=== PATIENT | male | born 2000 | race Two or more races ===

== ENCOUNTER 2021-08-12 15:57 | Emergency (ER) | payer SELFPAY ==
[~2021-08-12] VITALS: Ht 160 cm; Wt 54.0 kg
[2021-08-12 19:32] LABS: Basophils # (auto) 0.2 10 ^3/uL (0-0.2); Basophils % (auto) 1.9 % (0.0-2.0); Eosinophils # (auto) 0 10 ^3/uL (0-0.8); Eosinophils % (auto) 0.2 % (0.0-7.0); Hematocrit 39.2 % (41.0-53.0); Hemoglobin 13.7 g/dL (13.5-17.5); Lymphocytes # (auto) 1.3 10 ^3/uL (0.4-5.4); Lymphocytes % (auto) 13.6 % (10.0-50.0); Mean Corpuscular Hemoglobin 29.5 pg (28.0-32.0); Mean Corpuscular Hgb Conc. 34.9 g/dL (32.0-36.0); Mean Corpuscular Volume 84.6 fL (80.0-100.0); Monocytes # (auto) 1.2 10 ^3/uL (0-1.3); Monocytes % (auto) 12.9 % (0.0-12.0); Neutrophils # (auto) 6.7 10 ^3/uL (1.6-8.6); Neutrophils % (auto) 71.4 % (37.0-80.0); Nucleated Red Blood Cells % 0.3 %; Red Blood Cells 4.63 10^6/uL (4.5-5.90); Red Cell Distribution Width 12.4 % (11.8-14.3); White Blood Cell 9.4 10^3/uL (4.4-10.8)
[2021-08-12 19:50] LABS: Potassium 3.7 mmol/L (3.5-5.1)
[2021-08-12 19:56] LABS: Albumin 3.1 g/dL (3.4-5.0); BUN/Creatinine Ratio 10.4; Bilirubin, Total 0.6 mg/dL (0.2-1.0); Calcium 9.3 mg/dL (8.5-10.1)
[2021-08-12 20:23] LABS: Urine Bacteria NONE SEEN /hpf (None Seen); Urine Blood Negative /uL (Negative); Urine Mucus FEW (None Seen); Urine Specific Gravity 1.021 (1.001-1.035); Urine WBC 1 /hpf (0 - 3)
[2021-08-12] MEDS ORDERED: cefTRIAXone W LIDOCAINE 1 GM IM IM ONE (22:00)
[2021-08-12] MEDS ORDERED: cefTRIAXone SOD 1,000 MG VL ONE (22:21)
[2021-08-12 23:07] VITALS: BP 101/60
== END 2021-08-12 23:20 | disposition home or self-care (01) ==
LOC: EDBD 15:57 → ER 15:57
DX: R10.30 Lower abdominal pain, unspecified (principal); R50.9 Fever, unspecified
CPT/HCPCS: 36415; 74176; 80053; 81001; 83690; 85025; 96372; 99284; J0696

== ENCOUNTER 2021-10-27 17:43 | Emergency (ER) | payer MEDICAID, OTHER ==
[~2021-10-27] VITALS: Ht 160 cm; Wt 59.0 kg
[2021-10-27 18:00] VITALS: BP 137/79
== END 2021-10-27 20:46 | disposition left against medical advice (07) ==
LOC: EDBD 17:43 → ER 17:43
DX: R07.81 Pleurodynia (principal); Z53.21 Procedure and treatment not carried out due to patient leaving prior to being seen by health care provider